=== PATIENT | male | born 1980 | race Caucasian/White ===

== ENCOUNTER 2024-09-18 16:40 | Emergency (ER) | payer MEDICAID, SELFPAY ==
[2024-09-18] VITALS (7 sets, daily range): BP systolic 130–156; BP diastolic 71–90; PULSE 72–101; RESP 15–78; TEMP 36.7–37.4; O2SAT 79–94; BMI 43.8; BMI 42.0
--- NOTE | 2024-09-18 17:17 | XR_ITS ---
Examination: PA lateral chest 2 views Technique: Upright PA lateral chest 2 views Exam date and time: September 18, 2024 1758 hrs. Comparison 02/23/2021 Indications: Hypoxia today. Findings: Mild prominence of ventricle Mild basilar opacity Moderate vascular congestion Intact osseous structures Impression: Suspicious for early bibasilar pneumonia Moderate vascular congestion
--- NOTE | 2024-09-18 17:18 | EKG_ITS ---
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
--- NOTE | 2024-09-18 17:20 | PC.NURSE ---
@1720- SPOKE TO RT AT THIS TIME AND MADE AWARE PT HAS BREATHING TREATMENT. PER RT, WILL GO SEE PT SOON. @1818- CALLED RT AND REMINDED THAT PT HAS BREATHING TREATMENT AT THIS TIME AGAIN; PER RT, WILL COME SOON TO PT.
--- NOTE | 2024-09-18 17:22 | PD.EDRME ---
Rapid Medical Screening Exam RME Arrival date/time: 09/18/24 16:40 Chief Complaint: Suicidal Time Seen by Provider: 09/18/24 16:42 Vital signs: Vital Signs Temperature 98.2 F 09/18/24 17:04 Pulse Rate 101 H 09/18/24 17:04 Respiratory Rate 18 09/18/24 17:04 Blood Pressure 156/84 H 09/18/24 17:04 Pulse Oximetry (%) 79 L 09/18/24 17:04 Oxygen Delivery Method Room Air 09/18/24 17:04 Vital signs reviewed by provider: Yes RME Narrative: 44-year-old male presents to the ED with a complaint of suicidal ideation. Patient went outside today and was holding a knife to his neck, because the voices told me to . He is under the care of of a therapist. He is currently taking Depakote and paliperidone palmitate. He has been taking his medications, however he is still suicidal. He denies any homicidal ideation. 1799 hold will be initiated. I have greeted and performed a focused initial assessment of this patient. A comprehensive ED assessment and evaluation of the patient, analysis of all test results, and completion of the medical decision making process will be conducted by additional ED providers.
[2024-09-18 17:39] LABS: Basophils % (Auto) 0 % (0-2.5); Eosinophils # (Auto) 0.1 Thou/mm3 (0.0-0.5); Eosinophils % (Auto) 2 % (0-10); Hematocrit 53.7 % (41.0-53.0); Hemoglobin 17.2 g/dL (13.5-16.0); Immature Granulocytes % (Auto) 0 % (0-0); Immature Granulocytes Auto 0.01 Thou/mm3 (0.00-0.00); Lymphocytes # (Auto) 1.3 Thou/mm3 (1.0-4.8); Lymphocytes % (Auto) 16 % (10-50); Mean Corpuscular Hemoglobin 28.2 pg (25.0-35.0); Mean Corpuscular Volume 88 fL (80-100); Monocytes # (Auto) 0.5 Thou/mm3 (0.0-0.8); Monocytes % (Auto) 5 % (0-12); Neutrophils # (Auto) 6.4 Thou/mm3 (1.8-7.7); Neutrophils % (Auto) 77 % (37-80); Nucleated Red Blood Cell % 0 /100 WBC (0); Platelet Count 180 Thou/mm3 (140-440); RDW Standard Deviation 49.1 fL (35.1-43.9); White Blood Count 8.3 Thou/mm3 (3.8-10.6)
--- NOTE | 2024-09-18 17:44 | PD.EDADULT ---
ED General RME/HPI General Chief complaint: Suicidal Stated complaint: SI, HEARING VOICES, WANTS HELP Time Seen by Provider: 09/18/24 16:42 Arrival date/time: 09/18/24 16:40 CC: Suicidal ideation suicide attempt HPI patient states he has been hearing voices but today the voices told him to harm himself to the point where he held a knife to his neck. Patient is awake alert oriented has no physical pain patient is noted to have mild in the bases we will initiating a breathing treatment, the patient is on 3 L nasal cannula and BiPAP at night. No other complaints at this time RME / HPI RME / HPI narrative: 44-year-old male presents to the ED with a complaint of suicidal ideation. Patient went outside today and was holding a knife to his neck, because the voices told me to . He is under the care of of a therapist. He is currently taking Depakote and paliperidone palmitate. He has been taking his medications, however he is still suicidal. He denies any homicidal ideation. 1798 hold will be initiated. I have greeted and performed a focused initial assessment of this patient. A comprehensive ED assessment and evaluation of the patient, analysis of all test results, and completion of the medical decision making process will be conducted by additional ED providers. Related Data Home Medications ?Medication ?Instructions ?Recorded ?Confirmed divalproex 500 mg tablet,delayed 1,000 mg PO BID 09/15/18 02/25/21 release (Depakote) sevelamer carbonate 800 mg tablet 800 mg PO TID 10/19/18 02/26/21 (Renvela) allopurinol 300 mg tablet 300 mg PO QDAY 10/24/18 02/26/21 atorvastatin 40 mg tablet 40 mg PO QPM 10/24/18 02/26/21 isosorbide mononitrate 60 mg 60 mg PO QDAY 10/24/18 02/26/21 tablet,extended release 24 hr losartan 50 mg tablet 50 mg PO BID 10/24/18 02/26/21 nicardipine 20 mg capsule 20 mg PO BID 10/24/18 02/26/21 paliperidone palmitate 156 mg/mL 156 mg QMONTH 10/24/18 02/25/21 intramuscular syringe Previous Rx's ?Medication ?Instructions ?Recorded albuterol sulfate 90 mcg/actuation 2 inh inhalation QID PRN shortness 09/09/20 breath activated powder inhaler of breath or wheezing #1 ea hydralazine 50 mg tablet 50 mg PO BID #60 tabs 09/09/20 metoprolol tartrate 50 mg tablet 50 mg PO BID htn #60 tabs 09/09/20 dexamethasone 6 mg tablet 6 mg PO QDAY #4 tabs 02/27/21 (Decadron) Allergies Allergy/AdvReac Type Severity Reaction Status Date / Time cephalexin (From Keflex) Allergy Rash Verified 09/18/24 16:44 Review of Systems Review of Systems Narrative Review of Systems: GEN: No fever, no chills, no weight loss EYES: No discharge, no visual changes, no pain HEENT: No ear pain, no congestion, no sore throat PULM: No shortness of breath, no cough, no congestion CV: No chest pain, no dyspnea on exertion, no palpitations GI: No nausea, no vomiting, no diarrhea, no pain, no constipation : No frequency, no urgency, no dysuria MUSC/SKEL: No joint pain, no back pain SKIN: No rash PSYCH: +Auditory hallucinations HEME/LYMPH: No easy bleeding or bruising tendencies NEURO: No weakness, no headache Past Medical History Past Medical History NEUROLOGIC: Negative Neurological Disorders or Seizures CARDIAC: Positive Cardiac Disorders, Hypercholesterolemia and Hypertension; Negative Cardiac Arrhythmia or Congestive Heart Failure RESPIRATORY: Positive Chronic Obstructive Pulmonary Disease (COPD), Asthma and Pneumonia; Negative Emphysema GASTROINTESTINAL: Positive Pancreatitis; Negative Gastrointestinal Disorders or Cirrhosis GENITOURINARY: Positive Genitourinary Disorders, Renal Disease and Dialysis MUSCULOSKELETAL: Negative Musculoskeletal Disorders ENDOCRINE: Negative Endocrine Disorders, Diabetes Mellitus Type 1 or Diabetes Mellitus Type 2 HEMATOLOGIC: Positive Anemia PSYCHO/SOCIAL: Positive Schizophrenia, Recreational Drug Use, Bipolar Disorder, Depression and Anxiety OTHER HISTORY: Negative Blood Transfusions Social History SMOKING STATUS: Former smoker SUBSTANCE USE: does not use ED Exam Narrative Physical exam: [General: Morbidly obese not in distress acute distress Head normocephalic HEENT: Within acceptable limits Neck is supple nontender Chest equal chest rise nontender to palpation Respiratory: Clear to auscultation no wheezes crackles or rubs CV: Rate rhythm is regular no murmurs rubs or clicks Abdomen is distended secondary to body habitus soft nontender no masses positive bowel sounds all 4 quadrants Back: No CVA tenderness no spinous process tenderness from cervical spine thoracic and lumbar spine Skin: Intact no petechiae rash induration ulceration or crepitus Extremities: Moving all extremity against resistance cap refill less than 2 seconds neurosensory intact Neuro: Awake alert oriented x3 Glascow coma 15 no focal deficits] Course Quality Measures none Orders Category Date Time Status 1799 Psychiatric Hold NOW Care 09/18/24 18:00 Ordered Diet Regular Diet 09/19/24 Breakfast Active EKG (ED Only) Stat Exams 09/18/24 17:18 Draft XR chest 2V Stat Exams 09/18/24 17:17 Completed ABG [Arterial Blood Gas] Stat Lab 09/18/24 18:43 Completed ABG [Arterial Blood Gas] Stat Lab 09/23/24 08:37 Completed Acetaminophen Stat Lab 09/18/24 17:32 Completed Alcohol, Blood Medical Stat Lab 09/18/24 17:32 Completed CBC Stat Lab 09/18/24 17:32 Completed CBC Stat Lab 09/23/24 09:36 Completed CMP [Comprehensive Metabolic Panel] Stat Lab 09/18/24 17:32 Completed CMP [Comprehensive Metabolic Panel] Stat Lab 09/23/24 08:41 Completed Drug Screen,Urine Stat Lab 09/18/24 17:18 Completed ALBUTEROL RT 3ml [Proventil Rt 3ml] Med 09/23/24 08:04 Discontinued 2.5 mg INH Q6HR ONE Acetaminophen Tab [Tylenol ES Tab] Med 09/19/24 00:07 Discontinued 1,000 mg PO X1 ONE Acetaminophen Tab [Tylenol ES Tab] Med 09/19/24 15:27 Active 500 mg PO Q8H PRN Albuterol/Ipratr Rt Sapphire [Duoneb Rt Sapphire] Med 09/18/24 17:18 Discontinued 3 ml INH X1 ONE Albuterol/Ipratr Rt Sapphire [Duoneb Rt Sapphire] Med 09/20/24 19:08 Discontinued 3 ml INH X1 ONE Albuterol/Ipratr Rt Sapphire [Duoneb Rt Sapphire] Med 09/21/24 16:11 Discontinued 3 ml INH X1 ONE Divalproex Delmer Goss [Wilmer Goss] Med 09/19/24 21:00 Active 500 mg PO BID Escitalopram Oxalate [Lexapro] Med 09/21/24 13:17 Discontinued 20 mg PO X1 ONE Escitalopram Oxalate [Lexapro] Med 09/21/24 09:00 Discontinued 50 mg PO QDAY Ziprasidone [Geodon] Med 09/20/24 21:00 Active 60 mg PO BID dexAMETHasone TAB [dexAMETHasone Tab] Med 09/23/24 09:00 Active 6 mg PO QDAY BiPAP / CPAP HS RT 09/20/24 21:03 Active Oxygen Delivery NOW RT 09/18/24 17:19 Active Vital Signs Vital signs: Vital Signs Temperature 98.2 F 09/18/24 17:04 Pulse Rate 101 H 09/18/24 17:04 Respiratory Rate 18 09/18/24 17:04 Blood Pressure 156/84 H 09/18/24 17:04 Pulse Oximetry (%) 79 L 09/18/24 17:04 Oxygen Delivery Method Room Air 09/18/24 17:04 Discharge Plan Plan Patient Disposition: [facility] Facility Prescriptions/Referrals Prescriptions/Med Rec: No Action sevelamer carbonate [Renvela] 800 mg Tablet 800 mg PO TID paliperidone palmitate 156 mg/mL Syringe 156 mg QMONTH Rx Instructions: IM nicardipine 20 mg Capsule 20 mg PO BID allopurinol 300 mg Tablet 300 mg PO QDAY atorvastatin 40 mg Tablet 40 mg PO QPM isosorbide mononitrate 60 mg Tablet Extended Release 24 Hr 60 mg PO QDAY losartan 50 mg Tablet 50 mg PO BID albuterol sulfate 90 mcg/actuation aerosol powdr breath activated 2 inh inhalation QID PRN (Reason: shortness of breath or wheezing) Qty: 1 0RF metoprolol tartrate 50 mg Tablet 50 mg PO BID Qty: 60 0RF hydralazine 50 mg Tablet 50 mg PO BID Qty: 60 0RF dexamethasone [Decadron] 6 mg tablet 6 mg PO QDAY Qty: 4 0RF divalproex [Depakote] 500 mg Tablet,Delayed Release (Dr/Ec) 1,000 mg PO BID Referrals: No Primary/Family,Physician [Primary Care Provider] - In 1 week Problem List Clinical Impression: Suicidal ideation, Auditory hallucination, Suicide attempt Patient/Caregiver Discharge Instructions Print Language: Hungarian Stand Alone Forms: Johanna Award Info., Patient Portal Info Letter PA/INSTRUMENT AND CONTROLS TECHNICIAN Supervising Physician PA/INSTRUMENT AND CONTROLS TECHNICIAN Supervising Physician: Sánchez Bourgeois ENP
[2024-09-18 18:03] LABS: Amphetamine/Methamp Scrn,U Negative (Negative); Barbiturate Screen,Urine Negative (Negative); Benzodiazepines Screen,Urine Negative (Negative); Benzoylecgonine Screen, Ur Negative (Negative); Fentanyl Screen,Urine Negative (Negative); Opiate Screen,Urine Negative (Negative); THC Screen,Urine Negative (Negative)
[2024-09-18 18:16] LABS: Acetaminophen < 2.0 mcg/mL (10.0-20.0); Alanine Aminotransferase 13 U/L (10-49); Alcohol, Blood Medical < 3.0 mg/dL (0-10.0); Alkaline Phosphatase 62 U/L (46-116); Anion Gap 6 (7-16); Aspartate Amino Transferase 21 U/L (0-34); BUN/Creatinine Ratio 15 Ratio (12-20); Bilirubin,Total 0.6 mg/dL (0.3-1.2); Blood Urea Nitrogen 15 mg/dL (9-23); Calcium 9.6 mg/dL (8.3-10.6); Calcium (Corrected) 9.6 mg/dL (8.5-10.1); Chloride 100 mMol/L (98-107); Estimated Creatinine Clearance 117.8 mL/min (>60); Globulin 4.1 gm/dL (2.3-3.5); Glucose 169 mg/dL (74-106); Osmolality,Calculated 276 (275-295); Potassium 4.2 mMol/L (3.4-5.1); Sodium 136 mMol/L (136-145); Total Protein 8.1 gm/dL (5.7-8.2); eGFR > 60 See Note
[2024-09-18 18:47] LABS: Base Excess 7 (-3-3); HCO3 35 mEq/L (20-26); Inspired Oxygen, FIO2 21 %; O2 Saturation 93 % (91-98); PCO2 57 mmHg (32.0-48.0); PO2 68 mmHg (83-108); pH, Arterial 7.39 (7.35-7.45)
[2024-09-18 18:49] LABS: Allen Test Performed/OK; Puncture Site Right Radial
[2024-09-18] MEDS: ALBUTEROL/IPRATROPIUM (Duoneb) RT SOL 3 ML NEBU INH (19:01)
[2024-09-19] VITALS (13 sets, daily range): BP systolic 115–146; BP diastolic 76–101; PULSE 74–95; RESP 12–22; TEMP 36.4–37; O2SAT 90–96
[2024-09-19] MEDS: ACETAMINOPHEN 500 MG TABLET 1000 MG PO (00:12)
--- NOTE | 2024-09-19 04:55 | PD.EDADDENDU ---
Emergency Room Addendum Addendum Narrative: At 11 PM on 09/18/2024, the care of the patient was transferred to al by Sánchez Bourgeois NP. See previous notes for complete H&P and ED course. Patient is waiting for evaluation by our ED nurse behavioral health care. At 6 AM on 09/19/2024, the care of the patient was transferred to Dr Galicia. During my watch, the patient remained stable. Gil Romo MD
--- NOTE | 2024-09-19 07:07 | PD.EDADDENDU ---
Emergency Room Addendum Addendum Narrative: 0600: Care assumed from Dr. Romo, the previous shift emergency physician. Past medical, surgical, social and family history reviewed. Vitals and home medications reviewed. I will assume the care of the patient at this time, pending evaluation by our ED rental boats caretaker (1799 hold). Please refer to the emergency department record for history and examination from initial visit. 0950: Patient placed on a 5150 hold. At this time pending LPS facility placement.
--- NOTE | 2024-09-19 08:00 | PC.NURSE ---
per report at 0700, pt on 1799 hold for danger to self and waiting on school social worker to evaluate. Currently pt still c/o of hearing voices.
--- NOTE | 2024-09-19 08:23 | PC.NURSE ---
given meal tray
--- NOTE | 2024-09-19 08:48 | PC.CC ---
Patient is a 44 year-old male who presents to the hospital for suicidal ideation with intention. Patient was placed on a 1799 at 1800 on 09/18/2024. ASWNatasha and PHLEBOTOMY TECHNICIAN student, met with patient [id number] to complete assessment. ASW introduced self, role, and reason for assessment. Patient provided consent for PHLEBOTOMY TECHNICIAN to remain in the room during assessment. ASW disclosed limits of confidentiality as well. Patient appeared alert and oriented to self, place, and situation. Patient was well groomed; his mood appeared to be depressed with a flat affect and disinhibited. Patient?s thought process was linear and organized. No signs of delusions, paranoid or V/h. Patient reports yesterday he was hearing voices that were telling him to kill himself and got a knife from the kitchen and was going to cut his throat. Patient stated, ?The voices were telling me to kill myself and I was going to act on it, it was really bad.? ASW explored with patient what stopped him from acting on this intent. Patient reports his caregiver, Bill Vigil was able to talk to him on the phone. At the time of encounter the patient continues to express he is having auditory hallucinations that continue to tell him to kill himself and does not feel safe going home. Patient reports he does not feel safe as he feels he will re-attempt. Patient reports he has only been getting 1-2 hours of sleep at night due to the voices keeping him up. Patient denies visual hallucinations and homicidal ideation. Patient disclosed this was his first suicide attempt. Patient has been on a 5150-hold last year but was unable to articulate the reason for the hold. Patient has a mental health diagnosis of Schizoaffective with Bipolar type. Patient is connect to outpatient mental health services through [facility] and is followed by Psychiatrist, September. Patient is on Depakote 500mg in the morning and 500mg in the evening. Patient is compliant with his medication. 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 Patient?s toxicology was negative. Patient?s scored High-Risk on the [place] Screening. Patient disclosed he has 24/7 caregivers but is not a client of [facility] and is not Conserved. Patient has 24/7 care through [facility]. Patient is able to ambulate independently but requires oxygen 3L but is able to complete minimal task without the oxygen. Patient requires the B-Pap machine at night. Patient provided verbal consent to make contact with his caregivers. ASWRee made telephone contact with caregiver, Swati Vigil . ASW introduced self, role, and reason for call. Per Swati, patient has been in her care for multiple years and does require 24/7 care as he is developmentally delayed with a processing disorder. Swati confirmed patient is not conserved and is not a client of [facility] and is able to make all his own decisions. Patient is compliant with his medications. She reports yesterday she left to the store and patient stayed with caregiver?s niece when she went to look for him and saw him at the end of the driveway with a knife to his neck. The niece then called Bill Vigil and he was able to deescalate the patient and have him put the knife down. Caregiver confirmed patient has a mental health diagnosis of Schizoaffective with Bipolar type and receives outpatient mental health services from [facility] in [place]. Upon clinical consultation with Chayito PRECIADO the patient will be placed on a 5150-hold for Danger to Self. ASW provided advisement to patient and notified caregiver Swati by telephone. ASW provided discharge plan to psychiatric LPS facility to Dr. Galicia, photo retoucher Julia, and bedside RN Salvador. ASW to send referral packet to LPS Facilities via [employer]. ??
--- NOTE | 2024-09-19 08:51 | PC.CC ---
Patient is a 44 year-old male who presents to the hospital for suicidal ideation with intention. Patient was placed on a 1799 at 1800 on 09/18/2024. ASWNatasha and OPERATIONS SUPERVISOR student, met with patient [id number] to complete assessment. ASW introduced self, role, and reason for assessment. Patient provided consent for OPERATIONS SUPERVISOR to remain in the room during assessment. ASW disclosed limits of confidentiality as well. Patient appeared alert and oriented to self, place, and situation. Patient was well groomed; his mood appeared to be depressed with a flat affect and disinhibited. Patient?s thought process was linear and organized. No signs of delusions, paranoid or V/h. Patient reports yesterday he was hearing voices that were telling him to kill himself and got a knife from the kitchen and was going to cut his throat. Patient stated, ?The voices were telling me to kill myself and I was going to act on it, it was really bad.? ASW explored with patient what stopped him from acting on this intent. Patient reports his caregiver, Bill Vigil was able to talk to him on the phone. At the time of encounter the patient continues to express he is having auditory hallucinations that continue to tell him to kill himself and does not feel safe going home. Patient reports he does not feel safe as he feels he will re-attempt. Patient reports he has only been getting 1-2 hours of sleep at night due to the voices keeping him up. Patient denies visual hallucinations and homicidal ideation. Patient disclosed this was his first suicide attempt. Patient has been on a 5150-hold last year but was unable to articulate the reason for the hold. Patient has a mental health diagnosis of Schizoaffective with Bipolar type. Patient is connect to outpatient mental health services through [facility] and is followed by Psychiatrist, September. Patient is on Depakote 500mg in the morning and 500mg in the evening. Patient is compliant with his medication. 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 Patient?s toxicology was negative. Patient?s scored High-Risk on the [place] Screening. Patient disclosed he has 24/7 caregivers but is not a client of [facility] and is not Conserved. Patient has 24/7 care through [facility]. Patient is able to ambulate independently but requires oxygen 3L but is able to complete minimal task without the oxygen. Patient requires the B-Pap machine at night. Patient provided verbal consent to make contact with his caregivers. ASWRee made telephone contact with caregiver, Swati Vigil . ASW introduced self, role, and reason for call. Per Swati, patient has been in her care for multiple years and does require 24/7 care as he is developmentally delayed with a processing disorder. Swati confirmed patient is not conserved and is not a client of [facility] and is able to make all his own decisions. Patient is compliant with his medications. She reports yesterday she left to the store and patient stayed with caregiver?s niece when she went to look for him and saw him at the end of the driveway with a knife to his neck. The niece then called Bill Vigil and he was able to deescalate the patient and have him put the knife down. Caregiver confirmed patient has a mental health diagnosis of Schizoaffective with Bipolar type and receives outpatient mental health services from [facility] in [place]. Upon clinical consultation with Chayito PRECIADO the patient will be placed on a 5150-hold for Danger to Self. ASW provided advisement to patient and notified caregiver Swati by telephone. ASW provided discharge plan to psychiatric LPS facility to Dr. Galicia, university librarian Julia, and bedside RN Salvador. ASW to send referral packet to LPS Facilities via [employer]. ??
--- NOTE | 2024-09-19 10:42 | PC.NURSE ---
CALL RECIEVED FROM JOSE ANGEL AT [facility] AND UPDATE ON PT GIVEN. NICHOLS TO CALL BACK IF CAN ACCEPT PT
--- NOTE | 2024-09-19 11:31 | PC.CC ---
[facility], [facility], and [place] Declined patient due to oxygen unable to provide medical needs.
--- NOTE | 2024-09-19 11:44 | PC.NURSE ---
CALL RECEIVED FROM [facility]. REPORT GIVEN. TORI TO PRESENT TO FACILITY MD AND WILL CALL BACK TO [facility] IF [facility] ACCEPT[facility]
--- NOTE | 2024-09-19 12:29 | PC.NURSE ---
given meal tray
--- NOTE | 2024-09-19 12:30 | PC.NURSE ---
GIVEN MEAL TRAY
[2024-09-19] MEDS: ACETAMINOPHEN 500 MG TABLET PO (15:35)
--- NOTE | 2024-09-19 17:33 | PC.NURSE ---
given meal tray
[2024-09-19] MEDS: DIVALPROEX SOD DR 500 MG TABLET.DR PO (21:44)
--- NOTE | 2024-09-19 23:24 | PD.EDADDENDU ---
Emergency Room Addendum <Olimpia Florez - Last Filed: 09/19/24 23:25> Addendum Narrative: I took over the care from Dr. Galicia at 6 PM on 09/19/2024, see his notes for complete H&P and ED course. See previous notes for complete H&P and ED course. <Gil Romo MD - Last Filed: 09/20/24 04:50> Addendum Narrative: I took over the care from Dr. Galicia at 6 PM on 09/19/2024, see previous notes for complete H&P and ED course. During my watch, the patient remained stable. At 6 AM on 09/20/24, the care of the patient was transferred to Dr Galicia. Gil Romo MD
[2024-09-20] VITALS (13 sets, daily range): BP systolic 113–162; BP diastolic 72–92; PULSE 69–93; RESP 14–23; TEMP 36.6–37.2; O2SAT 86–96
--- NOTE | 2024-09-20 01:57 | PC.NURSE ---
new sheet per pt request. pt afebrile , but requesting cold compress on head. vs taken
--- NOTE | 2024-09-20 06:51 | PD.EDADDENDU ---
Emergency Room Addendum Addendum Narrative: 0600: Care assumed from Dr. Romo, the previous shift emergency physician. Past medical, surgical, social and family history reviewed. Vitals and home medications reviewed. I will assume the care of the patient at this time, pending LPS facility placement. Please refer to the emergency department record for history and examination from initial visit.?The following addendum documentation note is intended to reflect any pending information, findings, or radiology results not included in the patient?s initial chart. 1135: Our ASW spoke with patients caregiver and was able to provide additional medication list which includes Geodon, Lexapro, and Depakote. Patient will be restarted on medications. 1800: Patient signed out to Dr. Romo pending LPS facility placement.
--- NOTE | 2024-09-20 10:22 | PC.CC ---
Ree GUZMAN made telephone contact with Swati the caregiver. ASW inquired when is patient's next appointment with the psychiatrist, September. Swati reports the patient's next appointment with [facility] in [place] is September 28, 2024 at 3:00pm. ASW inquired if caregiver can attempt to obtain a sooner appointment. Swati reports she will attempt to get the patient a sooner appointment and call ASW back.
--- NOTE | 2024-09-20 11:23 | PC.CC ---
[facility] reports they cannot accommodate the patient due to medical needs. ASW informed patient he is still pending placement, patient was receptive to information.
--- NOTE | 2024-09-20 11:31 | PC.CC ---
Addendum entered by Ree Haji 09/20/24 17:31: ASW resent packet to [facility] facilities via [email or web address]. ASW made telephone contact with caregiver to inquire if she recall where patient was placed last year but no answer left v/m. Addendum entered by Ree Haji 09/20/24 17:29: ASW made face to face contact with the patient to inquire how he was feeling. Patient reports he is feeling better and the voices are still there but getting better. Addendum entered by Ree Haji 09/20/24 16:55: ASW provided Dr. Galicia with patient's medication list that was provided to ASW from patient's caregiver Swati. Original Note: ASW, made telephone contact with Swati who reports she made contact with [facility] and they are unable to provide patient with a sooner appointment than September 28, 2024.
[2024-09-20] MEDS: ACETAMINOPHEN 500 MG TABLET PO (11:47)
[2024-09-20] MEDS: DIVALPROEX SOD DR 500 MG TABLET.DR PO (11:47)
--- NOTE | 2024-09-20 18:53 | PD.EDADDENDU ---
Emergency Room Addendum Addendum Narrative: I took over the care from Dr. Galicia at 6 PM on 09/20/2024, see previous notes for complete H&P and ED course. During my watch, the patient remained stable. At 6 AM on 09/21/24, the care of the patient was transferred to Dr Galicia.
[2024-09-20] MEDS: ALBUTEROL/IPRATROPIUM (Duoneb) RT SOL 3 ML NEBU INH (20:16)
[2024-09-21] VITALS (14 sets, daily range): BP systolic 103–179; BP diastolic 68–104; PULSE 73–88; RESP 14–39; TEMP 36.3–36.8; O2SAT 91–94
--- NOTE | 2024-09-21 02:06 | PC.NURSE ---
spoke with pharmacist about scheduled depakote and geodon if okay to give at this time julianne stated its okay to give and continue with scheduled 9am meds
[2024-09-21] MEDS: ZIPRASIDONE 20 MG CAPSULE 60 MG PO ×3 (02:16→21:14)
[2024-09-21] MEDS: DIVALPROEX SOD DR 500 MG TABLET.DR PO ×3 (02:16→21:15)
--- NOTE | 2024-09-21 09:43 | PD.EDADDENDU ---
Emergency Room Addendum <Andria Yeh - Last Filed: 09/21/24 14:15> Addendum Narrative: 0600: Care assumed from Dr. Romo, the previous shift emergency physician. Past medical, surgical, social and family history reviewed. Vitals and home medications reviewed. I will assume the care of the patient at this time, pending LPS facility placement. Please refer to the emergency department record for history and examination from initial visit.?The following addendum documentation note is intended to reflect any pending information, findings, or radiology results not included in the patient?s initial chart. <Bud Galicia MD - Last Filed: 09/21/24 17:44> Addendum Narrative: 0600: Care assumed from Dr. Romo, the previous shift emergency physician. Past medical, surgical, social and family history reviewed. Vitals and home medications reviewed. I will assume the care of the patient at this time, pending LPS facility placement. Please refer to the emergency department record for history and examination from initial visit.?The following addendum documentation note is intended to reflect any pending information, findings, or radiology results not included in the patient?s initial chart. 1800 Signed out to oncomping provider, Dr. Romo, in stable condition pending crisis team plan and disposition.
--- NOTE | 2024-09-21 10:12 | PC.CC ---
Patient is a 44 year-old male who presents to the hospital for mental health evaluation due to suicidal ideations with intention and plan to cut his throat. Patient was holding a knife to his throat at the end of the driveway. ASWRee and MANAGER PEST Student, made [id number] contact with patient. Patient provided consent for MANAGER PEST Student to remain in the room during assessment. Patient's mood appeared to be depressed with a flat affect and disinhibited. Patient was tearful during assessment. Patient stated, ?The voices are getting better but still continue to be present mumbling in his ear. Patient is unable to provide ASW with a viable safety plan. ASW provided patient with advisement that he will remain on a second hold and he has the right to a court hearing [id number]. Patient was informed that he has the right to contest the hold in which he stated he does not want to contest the second hold. Patient provided ASW consent to make contact with caregiver, Swati Vigil to provide her with update. ASW made telephone contact with caregiver to provide her with an update of the second hold and was receptive to information. ASW provided update to Dr. Galicia, roller shop supervisor Denise, and AARON Harding.
--- NOTE | 2024-09-21 13:49 | PC.NURSE ---
MEDICATIONS DELAYED DUE TO WAITING ON PHARMACY TO BRING MEDICATION. LEXAPRO HELD DUE TO PATIENT STATING HE DOES NOT TAKE MEDICATION. PRINCIPAL DEVELOPER CONTACTING PREVIOUS FACILITY TO CONFIRM.
[2024-09-21] MEDS: ALBUTEROL/IPRATROPIUM (Duoneb) RT SOL 3 ML NEBU INH (16:36)
--- NOTE | 2024-09-21 16:47 | PC.NURSE ---
PATIENT REQUESTING BREATHING TREATMENT. ORDER PLACED PER VERBAL ORDER BY DR. BANKS. RT CONTACTED AND WILL ADMINISTER TREATMENT.
--- NOTE | 2024-09-21 20:46 | PD.EDADDENDU ---
Emergency Room Addendum <Elle Anguiano - Last Filed: 09/21/24 20:48> Addendum Narrative: I took over the care from previous shift physician at 6 PM on 09/21/2024 See previous notes for complete H & P and ED course. Diagnoses include: Treatment here included Based on my best medical judgment, made decision no further evaluation or treatment indicated at this time. Patient pending crisis team plan and disposition. Gil Romo MD <Gil Romo MD - Last Filed: 09/22/24 03:41> Addendum Narrative: I took over the care from previous shift physician, Dr Galicia, at 6 PM on 09/21/2024 See previous notes for complete H & P and ED course. Several days ago, patient presented with suicidal ideation. During my evaluation in the night of 09/21/24, patient requests discharge to go back home. He reports no current thoughts of hurting himself or other people. No hallucinations. At 6 AM on 09/22/2024, the care of the patient was transferred to Dr Galicia. Gil Romo MD
[2024-09-22] VITALS (14 sets, daily range): BP systolic 126–161; BP diastolic 74–95; PULSE 72–102; RESP 14–34; TEMP 36.4–36.9; O2SAT 88–92
--- NOTE | 2024-09-22 07:07 | PD.EDADDENDU ---
Emergency Room Addendum Addendum Narrative: 0600: Care assumed from Dr. Romo, the previous shift emergency physician. Past medical, surgical, social and family history reviewed. Vitals and home medications reviewed. I will assume the care of the patient at this time, pending LPS facility placement. Please refer to the emergency department record for history and examination from initial visit.?The following addendum documentation note is intended to reflect any pending information, findings, or radiology results not included in the patient?s initial chart. 1800: Patient signed out to Dr. Romo pending LPS facility placement.
--- NOTE | 2024-09-22 07:55 | PC.NURSE ---
pt eating breakfast. 1:1 sitter. pt reports no SI and no pain
[2024-09-22] MEDS: ZIPRASIDONE 20 MG CAPSULE 60 MG PO (08:10)
[2024-09-22] MEDS: DIVALPROEX SOD DR 500 MG TABLET.DR PO (08:10)
--- NOTE | 2024-09-22 13:14 | PC.NURSE ---
pt requested phone
--- NOTE | 2024-09-22 18:07 | EDNOTE_ITS ---
Emergency Room Addendum <Elle Anguiano - Last Filed: 09/23/24 00:29> Addendum Narrative: I took over the care from previous shift physician at 6 PM on 09/22/2024. See previous notes for complete H & P and ED course. I reviewed all diagnostic test results. Diagnoses include: Treatment here included Not yet done: I discussed the case with our hospitalist. About the presentation and exam and diagnostics and treatments here. And need of further care in the hospital. Will accept the patient. Not yet done: Based on my best medical judgment, made decision no further evaluation or treatment indicated at this time. Patient understands and agrees to the pasha latham instructions customized and printed, see below. Gil Romo MD <Gil Romo MD - Last Filed: 09/23/24 05:37> Addendum Narrative: I took over the care from previous shift physician, Dr Galicia, at 6 PM on 09/22/2024. See previous notes for complete H & P and ED course. Our ED coordinator is looking for inpatient psychiatric unit for the patient. At 6 AM on 09/23/2024, the care of the patient was transferred to Dr. Alatorre. During my watch, the patient remained stable. Gil Romo MD
[2024-09-23] VITALS (12 sets, daily range): BP systolic 117–176; BP diastolic 75–100; PULSE 69–98; RESP 14–78; TEMP 36.6–37; O2SAT 88–93
--- NOTE | 2024-09-23 06:14 | PD.EDADDENDU ---
Emergency Room Addendum Addendum Narrative: 0600: Care assumed from Dr. Romo, the previous shift emergency physician. Past medical, surgical, social and family history reviewed. Vitals and home medications reviewed. I will assume the care of the patient at this time, pending psychiatric placement. Please refer to the emergency department record for history and examination from initial visit.? The patient was placed in ED observation care at 09/23/2024 at 0600 hours. The patient was placed in ED observation care because of undifferentiated decompensated behavioral health evaluation, no behavioral health bed available. The patients past medical history, social history, and family history were reviewed. The plan of care will include serial examinations. While in ED observation the patient will have access to water, food, and personal hygiene. If the patient takes home medication(s), they will be continued in ED observation. 0757: Patient came in for suicidal ideation initially 5 days ago but denies at present time. He states he was hearing voices but that has resolved as well. He takes dexamethasone and has not been taking his medication since he came here. He states he also takes albuterol. He is not on BiPAP now. Patient is pleasant and has no complaints at this time. From our records on 09/18/2024: blood gas was 6.10, ABG pO2 was 68, O2 saturation was 93%. PMHx: COPD on home oxygen at 3 L/min via a nasal cannula, asthma, pneumonia, anemia in past, schizophrenia, bipolar disorder, anxiety, and depression. Physical exam by me shows patient under no acute distress at this time. Patient is pleasant and has no complaints at this time. Bilateral clear lung sounds. Diminished breath sounds in the bases. Obese abdomen but otherwise normal abdominal exam. 0815: I discussed the case with mental health. Discussed about how the patient is no longer suicidal but mental health does not feel comfortable discharging the patient home at this time due to his case. 1800: Patient was signed out to Dr. Romo. Past medical, surgical, social and family history reviewed. Vitals and home medications reviewed. Results and treatment plan discussed. They will assume the care of the patient at this time and will follow the patient, pending placement. ED observation care ended at 09/23/2024 at 1800 hours.
--- NOTE | 2024-09-23 07:34 | PC.NURSE ---
Report received from Corey Du. Patient is pending placement for SI. Patient is awake, alert. Patient on CPAP machine overnight. Patient responding appropriately.
[2024-09-23] MEDS: ALBUTEROL RT 2.5 MG/3 ML NEBU INH (08:28)
[2024-09-23 08:43] LABS: Base Excess 6 (-3-3); HCO3 35 mEq/L (20-26); Inspired O2, VO2 Liters 4 L/min; Inspired Oxygen, FIO2 21 %; O2 Saturation 92 % (91-98); PCO2 61 mmHg (32.0-48.0); PO2 66 mmHg (83-108); pH, Arterial 7.36 (7.35-7.45)
[2024-09-23 08:44] LABS: Allen Test Performed/OK; Puncture Site Right Radial
[2024-09-23 09:15] LABS: Alanine Aminotransferase 29 U/L (10-49); Alkaline Phosphatase 69 U/L (46-116); Anion Gap 1 (7-16); Aspartate Amino Transferase 22 U/L (0-34); BUN/Creatinine Ratio 27 Ratio (12-20); Bilirubin,Total 0.7 mg/dL (0.3-1.2); Blood Urea Nitrogen 27 mg/dL (9-23); Calcium 9.6 mg/dL (8.3-10.6); Calcium (Corrected) 9.6 mg/dL (8.5-10.1); Carbon Dioxide 33.8 mMol/L (20.0-31.0); Chloride 95 mMol/L (98-107); Estimated Creatinine Clearance 117.8 mL/min (>60); Globulin 4.2 gm/dL (2.3-3.5); Glucose 175 mg/dL (74-106); Osmolality,Calculated 269 (275-295); Potassium 5.4 mMol/L (3.4-5.1); Sodium 130 mMol/L (136-145); Total Protein 8.2 gm/dL (5.7-8.2); eGFR > 60 See Note
[2024-09-23] MEDS: ZIPRASIDONE 20 MG CAPSULE 60 MG PO ×3 (09:18→21:37)
[2024-09-23] MEDS: DIVALPROEX SOD DR 500 MG TABLET.DR PO ×3 (09:18→21:37)
[2024-09-23] MEDS: dexAMETHasone 6 MG TABLET PO (09:18)
[2024-09-23 10:13] LABS: Basophils % (Auto) 1 % (0-2.5); Eosinophils # (Auto) 0.1 Thou/mm3 (0.0-0.5); Eosinophils % (Auto) 1 % (0-10); Hemoglobin 17.8 g/dL (13.5-16.0); Immature Granulocytes % (Auto) 0 % (0-0); Immature Granulocytes Auto 0.02 Thou/mm3 (0.00-0.00); Lymphocytes # (Auto) 1.8 Thou/mm3 (1.0-4.8); Lymphocytes % (Auto) 21 % (10-50); Mean Corpuscular HGB Conc 31.2 g/dl (31.0-37.0); Mean Corpuscular Hemoglobin 28.2 pg (25.0-35.0); Mean Corpuscular Volume 90 fL (80-100); Monocytes # (Auto) 0.5 Thou/mm3 (0.0-0.8); Monocytes % (Auto) 6 % (0-12); Neutrophils # (Auto) 6.2 Thou/mm3 (1.8-7.7); Neutrophils % (Auto) 71 % (37-80); Nucleated Red Blood Cell % 0 /100 WBC (0); Platelet Count 207 Thou/mm3 (140-440); RDW Standard Deviation 51.2 fL (35.1-43.9); Red Blood Count 6.32 Miln/mm3 (4.50-5.90); White Blood Count 8.8 Thou/mm3 (3.8-10.6)
--- NOTE | 2024-09-23 10:32 | PC.ADMIT ---
ASW made face to face contact with patient to inform him he is still pending placement. ASW re-submitted the packet to LPS facilities via [facility] for placement.
--- NOTE | 2024-09-23 12:22 | PC.NURSE ---
[facility] declined patient due to unable to accomodate patient needs of oxygen and bipap
--- NOTE | 2024-09-23 12:31 | PC.NURSE ---
Patient up to bathroom for a shower with SALEEM Luna.
--- NOTE | 2024-09-23 18:15 | PD.EDADDENDU ---
Emergency Room Addendum <Elle Anguiano - Last Filed: 09/23/24 18:20> Addendum Narrative: I took over the care from previous shift physician at 6 PM on 09/23/2024. See previous notes for complete H & P and ED course. I reviewed all diagnostic test results. My interpretation of the EKG is My interpretation of the chest x-ray is My review of the CT report is Blood tests and urine tests Diagnoses include: Treatment here included Not yet done: I discussed the case with our hospitalist. About the presentation and exam and diagnostics and treatments here. And need of further care in the hospital. Will accept the patient. Not yet done: Based on my best medical judgment, made decision no further evaluation or treatment indicated at this time. Patient understands and agrees to the discharge instructions customized and printed, see below. Gil Romo MD <Gil Romo MD - Last Filed: 09/24/24 05:11> Addendum Narrative: I took over the care from previous shift physician at 6 PM on 09/23/2024. See previous notes for complete H & P and ED course. Our ED care management associate is looking for inpatient psychiatric unit for the patient. At 6 AM on 09/24/2024, the care of the patient was transferred to Dr. Alatorre. During my watch, the patient remained stable.` Gil Romo MD
[2024-09-24] VITALS (7 sets, daily range): BP systolic 125–168; BP diastolic 77–99; PULSE 71–84; RESP 16–24; TEMP 36.6–37; O2SAT 90–94
--- NOTE | 2024-09-24 06:20 | PD.EDADDENDU ---
Emergency Room Addendum Addendum Narrative: 0600: Care assumed from Dr. Romo, the previous shift emergency physician. Past medical, surgical, social and family history reviewed. Vitals and home medications reviewed. I will assume the care of the patient at this time, pending psychiatric placement. Please refer to the emergency department record for history and examination from initial visit.? The patient was placed in ED observation care at 09/24/2024 at 0600 hours. The patient was placed in ED observation care because of undifferentiated decompensated behavioral health evaluation, no behavioral health bed available. The patients past medical history, social history, and family history were reviewed. The plan of care will include serial examinations. While in ED observation the patient will have access to water, food, and personal hygiene. If the patient takes home medication(s), they will be continued in ED observation. Physical exam by me shows patient under no acute distress at this time. 1440: Mental health cleared the patient. Safety plan in place. Patient will be discharged. ED observation care ended at 09/24/2024 at 1440 hours.
--- NOTE | 2024-09-24 07:59 | PC.CC ---
[facility] attempted to contact Sania, Patient Rights Advocate at [phone] regarding a hearing for this pt; however, she did not answer, Dominguez Perez left a voice message. Patient Rights Advocate Sania [phone] responded to my call this AM and reported the Hearing will be scheduled possibly today. Sania will call back with a time for the Hearing.
--- NOTE | 2024-09-24 08:56 | PC.CC ---
0856- Patient is a 44 year-old male who presents to the hospital for mental health evaluation due to suicidal ideation with intention and plan to cut his throat. Patient was holding a knife to his throat at the end of the driveway. ACSWDominguez and ACSW Tianna Oneill completed a facet to face SS inquiry to prepare the pt for the pending Patient Rights Hearing (court hearing [id number]). Pt's mood was happy and smiling. Pt was AOx4. Pt was informed that barrier to placement was due to his bi-pap and pt understood. Pt reported that since he has been on the hold, he has been practicing his coping skills and reports he has plenty to live for. Pt reported his sees Shefali for services at [facility] located in [place] and would like SS to give her call for a f/u appointment upon d/c. Pt was asked the SS Inquiry questions and he responded to all questions to the best of his ability. Pt identified Swati Vigil as his primary support along with her spouse Bill. Pt identified extended family/friends as additional support if needed. Patient provided ASW consent to make contact with caregiver, Swati Vigil to provide her with update and consent to contact Shefali at [facility] outpatient services located in [place] for a f/u appointment. ACSW provided update to basket hand weaver Sara. Next of Kin: Bill Vigil [phone] Person to Notify: Swati Vigil [phone] Pending Patient Rights Hearing (court hearing [id number]) scheduled for 09/25/24 time: CHANDU Cardoza [phone] will f/u with ED Batch Room Technician tomorrow to provide a time for the said Hearing.
--- NOTE | 2024-09-24 09:22 | PC.CC ---
Addendum entered by FLACO Ibrahim 09/24/24 12:38: 1230 SS attempted to get a sooner appointment for the patient with Provider Shefali Yanes at [facility]. Per staff the soonest appointment is Tuesday09/28/24 at 3pm, and it would be the providers discretion if able to see the patient any sooner. A release of information was faxed over to [facility] to speak with provider Shefali Yanes for scheduling and medication regimen purposes. Addendum entered by FLACO Ibrahim 09/24/24 12:35: Spoke with patient's caregiver, Swati to gather collateral information as the patient provided verbal consent. Per Swati, the patient has been complaint with medication intake at home, in which she helps administer in the home. Per Swati, the patient takes Depakote. Swati reports she has attempted to make several attempts to get an immediate appointment for the patient to see his mental health provider, Shefali Yanes with [facility]. The soonest given appointment at this time is 09/28/24 at 3pm with Provider Joaquín. Swati reports there are no firearms or weapons in the home and that she or her Bill are always home and patient is never left alone. Per Swati, she is willing to provide support for the patient however, her only concern at this time is the direction she would take should patient began having audio hallucinations again and Swati is requesting medication update in regards to patient's regime to get established if and when patient gets discharged back home. Swati reports this behavior is new for the patient and is unsure what really changed for the patient to display this kind of behavior. Addendum entered by FLACO Ibrahim 09/24/24 09:56: 0955-Attempted contact with Swati and Bill Vigil, voicemail was provided to both parties individually. Original Note: 09-Pending Patient Rights Hearing (court hearing [id number]) scheduled for 09/25/24 time: CHANDU Cardoza [phone] will f/u with ED Blender Conveyor Operator tomorrow to provide a time for the said Hearing.
--- NOTE | 2024-09-24 14:10 | PC.CC ---
1410- Tianna Oneill received a call from the Patients Rights Advocate stating she will call the phone line on 09/25/24 at 1pm to begin the hearing.
--- NOTE | 2024-09-24 15:32 | PC.SS ---
1530- contacted [facility] to touch base on sooner appointment for the patient and to speak with provider September Joaquín as a release of information was faxed over to them. Per staff a message was already sent to the provider and social services specialist pending to hear back from the provider at this time.
--- NOTE | 2024-09-24 16:52 | PC.CC ---
Addendum entered by FLACO Ibrahim 09/24/24 17:15: SS provided voicemail to Patient's rights advocateBlanche Lui to notify of discharge/safety plan. Original Note: ASW met with the patient and caregiver Swati Vigil at [facility] side to discuss safety plan. The safety plan will consist of Swati providing support to the patient until his scheduled mental health appointment for Tuesday09/28/24 at 3pm with provider Shefali Yanes at [facility] in [facility]. Swati and the patient are both in agreement. Patient and caregiver were provided with guidance on what to do should the patient have returning SI thoughts or experience audio/visual hallucinations. Community resource handout was provided including crisis contact information, local authorities information and patient and caregiver were informed patient could return to the Emergency Department as well if necessary. Patient's caregiver confirms there are no firearms in the home and is agreeable to monitoring and administering medications on behalf of the patient. Caregiver was also advised to monitor any sharp objects in the home including knifes due to the concerns of what brought the patient to the ED in the first place. Currently the patient continues to deny suicidal and homicidal ideation. Patient also denies audio and visual hallucinations at this time. Patient states he is glad to be alive as he has a reason to live . 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 Patient also reports healthy coping skills through breathing techniques. The patient reports feeling confident with his return back home aqnd reports no concerns at this time of desire to harm himself. Patient does not appear to be responding to any stimuli at this time. Patient is observed to be happy, smiling and cooperative during encounter. Patient was also assessed for suicide utilizing the Suicide [place] scale screening, in which he scored low risk at this time. After clinical consultation, PAPER CAP MACHINE OPERATOR, Chayito Chaves, was in agreement with safety plan. Patient's caregiver Swati to transport the patient back home. ED Provider Celi and bed side nurse Julia both made aware of safety plan. Provider Celi to provide a week supply medication for the patient following hospital discharge and bed side nurse to review medications with the patient and caregiver during time of discharge.
== END 2024-09-24 17:39 | disposition home or self-care (01) ==
PROVIDERS: Family Medicine; Physician Assistant; Emergency Provider Emergency Medicine
DX: T14.91XA Suicide attempt, initial encounter (principal); F20.9 Schizophrenia, unspecified; R09.02 Hypoxemia; I44.4 Left anterior fascicular block; X78.1XXA Intentional self-harm by knife, initial encounter
CPT/HCPCS: 36415; 36600; 71046; 80053; 80307; 80320; 80329; 82803; 85025; 90839; 94640; 94660; 96127; 99285; A9270; J8540; G0480